=== PATIENT | male | born 1975 | race Caucasian/White ===

== ENCOUNTER 2021-05-08 14:51 | Emergency (ER) | payer BC, SELFPAY ==
[~2021-05-08] VITALS: Ht 172.7 cm; Wt 61.2 kg
[2021-05-08 15:57] VITALS: BP_SYST 144
--- NOTE | 2021-05-08 15:57 | NUR ---
Patient triaged and placed in waiting room. VSS and patient appears in no acute distress at this time. Accompanied by self, awaiting available bed, and MD notified of need for MSE.
--- NOTE | 2021-05-08 16:02 | NUR ---
ER Dr. Mehta in triage examining patient.
[2021-05-08 16:30] LABS: BASOPHILS % (AUTO) 0.2 % (0.0-2.0); EOSINOPHILS # (AUTO) 0.1 K/uL (0.0-0.4); HEMATOCRIT 38.4 % (36-54); HEMOGLOBIN 12.8 g/dL (14.0-18.0); LYMPHOCYTES # (AUTO) 1.4 K/uL (1.0-5.5); LYMPHOCYTES % (AUTO) 9.4 % (20.5-51.5); MEAN CORPUSCULAR HEMOGLOBIN 31 pg (27-31); MEAN CORPUSCULAR HGB CONC 34 % (32-36); MEAN CORPUSCULAR VOLUME 92 fL (79.0-98.0); MONOCYTES # (AUTO) 1.1 K/uL (0.0-1.0); MONOCYTES % (AUTO) 7.4 % (1.7-9.3); NEUTROPHILS # (AUTO) 11.8 K/uL (1.8-7.7); PLATELET COUNT (AUTO) 252 K/uL (130-430); RED BLOOD CELL COUNT(AUTO) 4.19 MIL/uL (4.2-6.2); RED CELL DISTRIBUTION WIDTH 12.9 % (9.0-15.0); WHITE BLOOD COUNT (AUTO) 14.4 K/uL (4.8-10.8)
[2021-05-08 16:44] LABS: CALCIUM 9.1 mg/dL (8.4-11.0); CREATININE 0.72 mg/dL (0.55-1.30); POTASSIUM 4.1 mmol/L (3.5-5.1)
[2021-05-08 16:50] LABS: ALBUMIN 3.6 g/dL (3.4-4.8); TOTAL BILIRUBIN 0.3 mg/dL (0.0-1.0)
--- NOTE | 2021-05-08 17:08 | NUR ---
patient placed in bed 4.
--- NOTE | 2021-05-08 17:10 | NUR ---
Patient from home, ambulatory, AOx4 for cellulities to back of right thigh x 4 days. Reports pus coming out of wound. Denies any fevers, chills, numness. Pain 4/10. No other complaints/injuries per patient or as noted.
--- NOTE | 2021-05-08 17:13 | NUR ---
Dr. Mehta at bedside for I & D.
[2021-05-08] MEDS ORDERED: LIDOCAINE 1%, 20 ML MDV 20 ML ONE (17:14)
[2021-05-08] MEDS ORDERED: BACITRACIN 1 GM OINT TP ONE (17:15)
[2021-05-08] MEDS ORDERED: DIPH-TET-PERTUS Vaccine 0.5 ML VIAL (ADACEL) I.M. ONE (17:15)
[2021-05-08] MEDS ORDERED: LIDOCAINE 1% 10 MG/ML, 20 ML MDV INJ ONE (17:15)
[2021-05-08] MEDS ORDERED: CLIN-142 PO (17:42)
[2021-05-08] MEDS ORDERED: IBUP-1971 PO (17:42)
[2021-05-08] MEDS ORDERED: IBUPROFEN 800 MG TABLET PO ONE (17:45)
[2021-05-08] MEDS ORDERED: CLINDAMYCIN HCL 150 MG CAPSULE PO ONE (17:45)
--- NOTE | 2021-05-08 17:59 | NUR ---
medicated per md orders. patient tolerated well.
[2021-05-08 18:00] LABS: C-REACTIVE PROTEIN QUANT 12.6 mg/dL (0-0.5)
[2021-05-08 18:13] VITALS: BP_SYST 132
--- NOTE | 2021-05-08 18:13 | NUR ---
Patient given written and verbal discharge instructions and verbalizes understanding. ER MD discussed with patient the results and treatment provided. Patient in stable condition. ID arm band removed. Rx of clindamycin and motrin given. Patient educated on pain management and to follow up with PMD. Pain Scale 0/10 Opportunity for questions provided and answered. Medication side effect fact sheet provided.
== END 2021-05-08 18:13 | disposition home or self-care (01) ==
LOC: SED 14:51
DX: L02.415 Cutaneous abscess of right lower limb (principal)
CPT/HCPCS: 10061; 36415; 80053; 83605; 85025; 86140; 90471; 90715; 99284; J2001

== ENCOUNTER 2021-05-10 11:55 | Emergency (ER) | payer BC, SELFPAY ==
[~2021-05-10] VITALS: Ht 172.7 cm; Wt 61.2 kg
[~2021-05-10 11:55] MED LIST: CLIN-142 PO; IBUP-1971 PO
--- NOTE | 2021-05-10 12:00 | NUR ---
Pt brought by self, A&Ox4, pt presents to ER with for wound check on R upper leg after I&D , skin pink and warm, cap refill <3, VSS, afebrile.
[2021-05-10 12:04] VITALS: BP_SYST 136
--- NOTE | 2021-05-10 13:32 | NUR ---
Patient to ER bed H1 to gown for evaluation. Side rails up.
[2021-05-10] MEDS ORDERED: VANCOMYCIN HCL 1,000 MG in NS 250 ML IV ONE (15:00)
[2021-05-10] MEDS ORDERED: NACL 0.9% 1,000 ML IV ONE (15:00)
[2021-05-10] MEDS ORDERED: LIDOCAINE/EPI 2% 1:100000 20 ML VIAL INJ ONE (15:04)
[2021-05-10] MEDS ORDERED: VANCOMYCIN HCL 1000 MG/VIAL IV ONE (15:15)
--- NOTE | 2021-05-10 18:04 | NUR ---
Dr. Little at bedside for I/D, culture sent
--- NOTE | 2021-05-10 18:26 | NUR ---
Patient given written and verbal discharge instructions and verbalizes understanding. ER Dr. Little discussed with patient the results and treatment provided. Patient in stable condition. ID arm band removed. IV catheter removed intact and dressing applied, no active bleeding. Rx given on saturday admision and still taking. Patient educated on pain management, using Motrin as needed and to follow up with PMD. Pain Scale 0. Opportunity for questions provided and answered.
[2021-05-10 18:27] VITALS: BP_SYST 128
== END 2021-05-10 18:27 | disposition home or self-care (01) ==
LOC: SED 11:55
DX: L02.415 Cutaneous abscess of right lower limb (principal)
CPT/HCPCS: 10060; 87070; 87075; 87186; 96365; 96366; 99284; J3370; 96360; 96361